=== PATIENT | male | born 1990 | race Caucasian/White ===

== ENCOUNTER 2016-12-23 05:34 | Emergency (ER) | payer SELFPAY ==
--- NOTE | 2016-12-27 19:22 | ER ---
ADMIT: 12/23/2016 RM/LOC: ER [facility] MR#: [id number] [id number] [place], [place] [address] KITTY REGALADO [address] [facility] [address] [place] [address] Emergency Room Report SEX: M AGE: 26 : 1990 DATE: 12/23/2016 The patient is a 26-year-old male with bipolar, admits to recent URI, complains of bilateral left greater than right earaches tonight. Exam remarkable for nontoxic, acutely uncomfortable male with bilateral otitis media, left greater than right. Minimal ceruminosis bilaterally. Treated with Toradol, Dilaudid, Reglan. Home with Levaquin 500 mg daily x7 days, hydrocodone 5/325 mg as needed #20. Work release and follow up with Dr. Zapata as needed. Vishnu Almonte MD/ edwardo JOB #: [id number] CC: Vishnu Almonte MD, Attending Physician Inocencia Oviedo APRN, Family Physician
== END 2016-12-23 06:06 | disposition home or self-care (01) ==
LOC: ER 05:34
DX: H66.93 Otitis media, unspecified, bilateral (principal); F17.210 Nicotine dependence, cigarettes, uncomplicated; F31.9 Bipolar disorder, unspecified; Z88.0 Allergy status to penicillin

== ENCOUNTER 2016-12-25 13:38 | Emergency (ER) | payer SELFPAY ==
--- NOTE | 2017-01-03 16:06 | ER ---
ADMIT: 12/25/2016 RM/LOC: ER [facility] MR#: [id number] [id number] [place], [place] [address] KITTY REGALADO [address] [place] [address] Emergency Room Report SEX: M AGE: 26 : 1990 DATE: 12/25/2016 ADDENDUM: This patient comes into the ER because he has a known ear infection. It is on the left ear. He has been taking Levaquin and he is on day 3 of Levaquin, but he is having a lot of pain in his ear. On physical exam, he does have a bulging red TM on the left side. There is no swelling in the canal. DIAGNOSIS: Left otitis media. We will have him continue with the Levaquin that he was prescribed, and I did add [place] 5 mg dispense 20. He is to follow up with ENT in the next few days if not feeling better. Please see my T-sheet. ИРИНА Moreira / Anmol Mckeon MD / juliannl JOB #: [id number] CC: Anmol Mckeon MD, Attending Physician Allison Hubbard MD, Family Physician
== END 2016-12-25 14:50 | disposition home or self-care (01) ==
LOC: ER 13:38
DX: H66.92 Otitis media, unspecified, left ear (principal); F32.9 Major depressive disorder, single episode, unspecified; F41.9 Anxiety disorder, unspecified; F17.210 Nicotine dependence, cigarettes, uncomplicated; Z90.89 Acquired absence of other organs; Z88.0 Allergy status to penicillin; Z79.899 Other long term (current) drug therapy

== ENCOUNTER 2017-01-15 07:53 | Emergency (ER) | payer SELFPAY ==
--- NOTE | 2017-01-20 16:04 | ER ---
ADMIT: 01/15/2017 RM/LOC: ER [facility] MR#: [id number] [id number] [place], [place] [address] KITTY REGALADO [address] [place] [address] Emergency Room Report SEX: M AGE: 26 : 1990 DATE: 01/15/2017 ADDENDUM: 26-year-old white male coming in with lethargy. Evidently, very difficult getting him up out of bed today. Denies any other drug intake or anything. He is on medicines for depression, however, that has been pretty stable at this time, that is a major depressive disorder, but again he has no symptoms of that at this time. It was more of a malaise, fatigue. He seemed to clear out of it. There is no seizure activity or other findings. CBC, chemistry, and chest x-ray negative. I checked a prolactin level, that was negative. His TSH as noted was negative and chest x-ray. At this time we are going to discharge him home, off work today and then we are going to have him follow up with his doc. He is using [facility] as his primary care. CONDITION ON DISCHARGE: Good. Chadd Arroyo MD/ edwardo JOB #: [id number] CC: Chadd Arroyo MD, Attending Physician
== END 2017-01-15 10:30 | disposition home or self-care (01) ==
LOC: ER 07:53
DX: F32.9 Major depressive disorder, single episode, unspecified (principal); F41.9 Anxiety disorder, unspecified; Z88.0 Allergy status to penicillin